=== PATIENT | female | born 1960 | race Caucasian/White ===

== ENCOUNTER 2016-07-05 05:59 | Observation (INO) | payer OTHER ==
[~2016-07-05] VITALS: Ht 165.1 cm; Wt 86.7 kg
[2016-07-05] MEDS ORDERED: LINZESS145 MCG PO ×2 (06:29→12:05)
[2016-07-05] MEDS ORDERED: OXYCONTIN40 MG PO (06:29)
[2016-07-05] MEDS ORDERED: BENICAR5 MG PO (06:32)
[2016-07-05 06:37] LABS: CHLORIDE 107 mEq/L (99-109); POTASSIUM 4.5 mEq/L (3.7-5.4); SODIUM 143 mEq/L (136-147)
[2016-07-05 06:38] LABS: GLUCOSE 101 mg/dL (70-99)
[2016-07-05 06:40] LABS: ANION GAP 11 MEQ/L (2-14)
[2016-07-05 06:42] LABS: GFR ESTIMATE (CALCULATED) > 59 mL/min/
[2016-07-05 06:43] LABS: UREA NITROGEN (BUN) 10 mg/dL (9-23)
[2016-07-05 07:08] LABS: TROP-I INTERPRETATION NEGATIVE; TROPONIN-I < 0.01 ng/mL (0.0-0.30)
[2016-07-05 07:53] LABS: HEMATOCRIT 37.3 % (36.0-46.0); MCH 30.4 PG (29.0-34.0); MCV 92.3 FL (83-99); RED BLOOD COUNT 4.04 M/uL (3.80-5.20); WHITE BLOOD COUNT 9.3 K/uL (4.1-10.2)
[2016-07-05 08:23] LABS: MEAN PLAT.VOLUME 10.5 uM^3 (9.5-12.4)
[2016-07-05 10:10] LABS: TROP-I INTERPRETATION NEGATIVE; TROPONIN-I < 0.01 ng/mL (0.0-0.30)
[2016-07-05] MEDS ORDERED: BENICAR40 MG PO (12:04)
[2016-07-05] MEDS ORDERED: OXYCODONE HCL10 MG PO (12:07)
[2016-07-05] MEDS ORDERED: GRALISE300 MG PO (12:08)
[2016-07-05] MEDS ORDERED: ADVIL,NUPRIN,M200 MG PO (12:08)
[2016-07-05 13:11] LABS: HDL CHOLESTEROL 64 MG/DL (Desirable>=50); LDL CHOLESTEROL 123 mg/dL (Desirable<100); NON-HDL CHOLESTEROL 157 mg/dL (Desirable<160); TOTAL CHOLESTEROL 221 mg/dL (Desirable<200); TRIGLYCERIDES 170 MG/DL (Normal: <150)
[2016-07-05 13:24] VITALS: BP 131/63
[2016-07-05 13:46] LABS: CREATINE KINASE 85 IU/L (1-294); TOTAL CK 85 IU/L (1-294)
[2016-07-05 15:05] LABS: CK-MB 1.8 ng/mL (0.0-4.9)
[2016-07-05 15:23] VITALS: BP 143/63
[2016-07-05 15:42] LABS: D-DIMER ELISA 0.34 mg/L FEU (< 0.57)
[2016-07-05 17:17] LABS: AMPHETAMINES QUANT VALUE 0 NG/ML; BARBITUATES QUANT VALUE 0 NG/ML; BENZODIAZEPINES QUANT VALUE 0 NG/ML; BENZODIAZEPINES, URINE SCREEN Negative (200 ng/mL); MARIJUANA QUANT VALUE 0 NG/ML; OPIATES QUANTITATIVE VALUE 0 NG/ML; PHENCYCLIDINE QUANT VALUE 0 NG/ML
[2016-07-05 20:19] VITALS: BP 152/65
[2016-07-05 23:37] VITALS: BP 136/84
[2016-07-06 01:44] LABS: TROP-I INTERPRETATION NEGATIVE; TROPONIN-I < 0.01 ng/mL (0.0-0.30)
[2016-07-06 03:29] VITALS: BP 119/58
[2016-07-06 06:24] LABS: ANION GAP 11 MEQ/L (2-14); CHLORIDE 107 MEQ/L (99-109); GFR ESTIMATE (CALCULATED) > 59 mL/min/; GLUCOSE 94 mg/dL (70-99); POTASSIUM 3.8 MEQ/L (3.7-5.4); SAMPLE HEMOLYSIS CHECK 0; SAMPLE ICTERIC CHECK 0; SAMPLE LIPEMIA CHECK 0; SODIUM 141 MEQ/L (136-147); UREA NITROGEN (BUN) 12 mg/dL (9-23)
[2016-07-06 06:41] LABS: HEMATOCRIT 35.1 % (36.0-46.0); MCH 31.8 PG (29.0-34.0); MCHC 34.8 G/DL (30.0-36.0); MCV 91.4 FL (83-99); MEAN PLAT.VOLUME 10.2 uM^3 (9.5-12.4); PLATELET COUNT 261 K/uL (156-360); RBC DIS.WIDTH-CV 13.1 % (11.8-14.6); RED BLOOD COUNT 3.84 M/uL (3.80-5.20); WHITE BLOOD COUNT 9.4 K/uL (4.1-10.2)
[2016-07-06 09:11] VITALS: BP 167/74
== END 2016-07-06 10:51 | disposition home or self-care (01) ==
LOC: EME 05:59 → EDOF 11:45 → 5WEST 13:00
PROVIDERS: Emergency Medicine; Internal Medicine
DX: R07.9 Chest pain, unspecified (principal); M79.602 Pain in left arm; M54.2 Cervicalgia; I10 Essential (primary) hypertension; F41.9 Anxiety disorder, unspecified; F17.200 Nicotine dependence, unspecified, uncomplicated; G89.29 Other chronic pain
CPT/HCPCS: 71020; 80048; 80061; 80306 90; 82550 91; 82553; 83880; 84484; 85027; 85379; 93005; 93306; 99281; 99285; G0378; J1650; J1885

== ENCOUNTER → 2017-08-11 | Outpatient (CLI) | payer OTHER ==
[~2017-08-11] MED LIST: ADVIL,NUPRIN,M200 MG PO; BENICAR40 MG PO; BENICAR5 MG PO; GRALISE300 MG PO; LINZESS145 MCG PO; OXYCODONE HCL10 MG PO; OXYCONTIN40 MG PO
== END | disposition home or self-care (01) ==
DX: Z01.818 Encounter for other preprocedural examination (principal); R29.3 Abnormal posture; R26.2 Difficulty in walking, not elsewhere classified; R26.9 Unspecified abnormalities of gait and mobility; M25.562 Pain in left knee; M79.605 Pain in left leg; M25.662 Stiffness of left knee, not elsewhere classified; M62.81 Muscle weakness (generalized); Z74.1 Need for assistance with personal care; M17.12 Unilateral primary osteoarthritis, left knee
CPT/HCPCS: 97161 GP; 97165 GO; 97530 GP; 97535 GO

== ENCOUNTER 2017-08-31 21:47 | Inpatient (IN) | payer OTHER ==
[~2017-08-31] VITALS: Ht 165.1 cm; Wt 83.9 kg
[~2017-08-31 21:47] MED LIST changes: +ERGOCALCIF50000 UNIT PO; +HYDROCHLOROTH12.5 M3 PO; +STOOL SOFTENER100 MG PO; +XTAMPZA ER27 MG PO
[2017-09-01 06:01] VITALS: BP 166/79
[2017-09-01 10:22] LABS: HEMATOCRIT 37.1 % (36.0-46.0); HEMOGLOBIN 11.9 G/DL (11.9-15.5); MCH 30.4 PG (29.0-34.0); MCHC 32.1 G/DL (30.0-36.0); MCV 94.6 FL (83-99); PLATELET COUNT 253 K/uL (156-360); RBC DIS.WIDTH-CV 12.7 % (11.8-14.6); RBC DIS.WIDTH-SD 43.9 % (39-53); RED BLOOD COUNT 3.92 M/uL (3.80-5.20); WHITE BLOOD COUNT 14.4 K/uL (4.1-10.2)
[2017-09-01 11:10] VITALS: BP 164/78
[2017-09-01 15:38] VITALS: BP 139/63
[2017-09-01 20:16] VITALS: BP 141/64
[2017-09-02 00:15] VITALS: BP 172/78
[2017-09-02 04:17] VITALS: BP 163/70
[2017-09-02 05:40] LABS: HEMATOCRIT 37.7 % (36.0-46.0); HEMOGLOBIN 12.4 G/DL (11.9-15.5); MCV 92.2 FL (83-99)
[2017-09-02 06:10] LABS: CHLORIDE 103 MEQ/L (99-109); GFR ESTIMATE (CALCULATED) > 59 mL/min/; GLUCOSE 124 mg/dL (70-99); SODIUM 141 MEQ/L (136-147); UREA NITROGEN (BUN) 11 mg/dL (9-23)
[2017-09-02 08:10] VITALS: BP 189/83
[2017-09-02 12:11] VITALS: BP 144/67
[2017-09-02 15:59] VITALS: BP 165/75
[2017-09-02 20:01] VITALS: BP 168/75
[2017-09-03 00:15] VITALS: BP 161/73
[2017-09-03 04:10] VITALS: BP 166/72
[2017-09-03 06:07] LABS: HEMATOCRIT 38.1 % (36.0-46.0); HEMOGLOBIN 12.8 G/DL (11.9-15.5); MCV 92.7 FL (83-99)
[2017-09-03 06:13] LABS: INTER. NORMALIZED RATIO 1.2
[2017-09-03 08:14] VITALS: BP 167/79
[2017-09-03] MEDS ORDERED: COUMADIN1 MG PO (09:16)
[2017-09-03 12:15] VITALS: BP 122/64
== END 2017-09-03 14:35 | DRG 470 ==
LOC: ENRESERV 21:47 → 3WEST 09-01 05:23 → 2SOUTH 09-01 05:23 → 3WEST 09-01 10:57 → 2SOUTH 09-01 13:07 → 3WEST 09-03 14:35
PROVIDERS: Orthopaedic Surgery
PROC: 0SRD0J9 Replacement of Left Knee Joint with Synthetic Substitute, Cemented, Open Approach (ICD-10-PCS; principal; 2017-09-01)
DX: M17.12 Unilateral primary osteoarthritis, left knee (principal); I10 Essential (primary) hypertension; G89.29 Other chronic pain; R35.0 Frequency of micturition; R35.1 Nocturia; M21.062 Valgus deformity, not elsewhere classified, left knee; M21.162 Varus deformity, not elsewhere classified, left knee; E03.9 Hypothyroidism, unspecified; Z90.710 Acquired absence of both cervix and uterus; Z90.49 Acquired absence of other specified parts of digestive tract; Z98.1 Arthrodesis status; Z88.0 Allergy status to penicillin; Z88.5 Allergy status to narcotic agent; Z88.1 Allergy status to other antibiotic agents; Z87.891 Personal history of nicotine dependence; Z83.3 Family history of diabetes mellitus
CPT/HCPCS: 73560; 80048; 85014; 85018; 85027; 85610; 97530 GO; C1713; J0131; J1100; J1170; J1650; J2250; J2405; J2795; J3010; J7030; J7050; S0020